=== PATIENT | male | born 1960 | race Caucasian/White ===

== ENCOUNTER 2016-04-10 20:15 | Emergency (ER) | payer BC ==
--- NOTE | 2016-04-10 20:58 | ERNOTE ---
Abdominal HPI - Narrative Date of Service: 04/10/16 - General Chief Complaint: Abdominal Pain Time Seen by Provider: 04/10/16 20:54 - Immun/Allergies/Home Medications Immunizatons: IMMUNIZATION HX Immunizations Up to Date Yes History of Influenza Vaccine No Allergies/Adverse Reactions: Allergies aspirin Adverse Reaction (Verified 04/10/16 20:38) nosebleeds Home Medications: HOME MEDICATIONS Otc Supplements 04/09/14 [Last Taken Unknown] - History of Present Illness Narrative: PT HAS A LONG HISTORY OF CARCINOID SYNDROME FOLLOWED AT [facility] BY DR CHILDRESS. HE HAS NOT LOCAL DR. HE WAS LAST SEEN THEIR IN [address] OF CHEST AND ABDOMEN A ROUTINE SCREENING PROCESS SHOWING "MORE CONSPICUOUS AND NUMEROUS SMALL HYPER ENHANCING LESIONS IN LIVER . CONSISTENT WITH PROGRESSION OF METASTATIC DISEASE IN THE LIVER". HE ALSO HAD FINDINGS OF "STABLE METASTATIC DISEASE " IN THE "PERITONEUM AND OMENTUM". HE PRES[facility] WITH C/O GENERALIZED ABDOMINAL PAINS EVER SINCE LAST THURSDAY WHEN HE WAS OUT PICKING UP BRUSH AND HE WONDERS IF HE STRAIN SOME ABDOMINAL MUSCLES. HE RELATES THAT THE DISCOMFORT IS BECOMING MORE CONSISTENT AND WORSE WITH MOVEMENT AND DEEP BREATHING BUT HE HAS INITIATED NO TREATMENT FOR THIS. HE DENIES WEIGHT GAIN OR LOSS. NO CHANGE IN HIS APPETITE OR BOWEL HABITS. HE HAS FAIRLY REGULAR [facility] HE SAYS THAT THESE STOOLS DO SMELL BAD. HE LAST ATE ABOUT 1630. HE HAS HAD NO FEVERS OR VOMITING OR DIARRHEA. HE DENIES UTI SX. WHEN LAST SEEN IN [place] HE HAD BEEN STARED ON OCTREOTIDE, S.Q. TID, WHICH HE READ COULD CAUSE ABDOMINAL PAINS SO HE QUIT TAKING IT TWO DAYS AGO BUT NOTICED NO IMPROVEMENT. HE HAS NOT CONTACTED HIS PHYSICIAN IN [place]. HE WAS LAST SEEN HERE BY DR VALLADARES IN 2010 WHEN HE HAD A SMALL BOWEL RESECTION THAT LED TO THE DIAGNOSIS OF HIS CARCINOID SYNDROME. Timing: getting worse Quality: moderate, cramping Activities at Onset: activity Modifying Factors - (Worsens): Present: breathing, movement Review of Systems - Narrative Narrative: Pt with history of intermittent abdominal pains for the past week. He has not been seen by his PCP or oncologist for this. - Review of Systems Constitutional: Present: See HPI Respiratory: Present: no symptoms reported Cardiology: Present: no symptoms reported Gastrointestinal/Abdominal: Present: See HPI. Absent: nausea, vomiting, diarrhea, constipation, eating less, drinking less Genitourinary: Present: no symptoms reported Musculoskeletal: Present: See HPI Neurological: Present: no symptoms reported Endocrine: Present: no symptoms reported Psych: Present: no symptoms reported All Other Systems: All systems neg except as marked - Patient's Past Medical History Patient History - Medical: Other - HISTORY OF [place] 1982, HX OF CARCINOID SYN . SINCE 2010. HE STATES MILD HYPOTHYROIDISM FOR WHICH HE TAKES NO MEDS. Patient History - Cardiac/Respiratory: No pertinent hx Patient History - Cancer: Other Patient History - Surgical Procedures: Colon Resection, T & A, Other - CERVICAL NODE BX. 1982 , "CYSTS" TO BACK OF NECK 2002, Orthopedic - Social History Living Situations: home Psych History: No pertinent hx Smoking Status: Never smoker Alcohol Use: none Drug Use: none - Immunizations Immunizations Up to Date: Yes History of Influenza Vaccine: No Physical Exam - Physical Exam General Appearance: Present: wd/wn, no apparent distress Respiratory: Present: no respiratory distress, normal breath sounds, no accessory muscle use, chest nontender, lungs clear Cardiovascular/Chest: Present: regular rate, rhythm, no murmur, normal peripheral pulses Gastrointestinal/Abdominal: Present: normal bowel sounds, soft, no organomegaly , tenderness - GENERALIZED TENDERNESS ALL ACROSS UPPER ABDOMEN WITH MINMAL GUARDING AND NO REBOUND. NO MASSES OR ORGANOMEGALY. HE HAS SLIGHTLY PROTUBERANT ABDOMEN WHICH SAYS IS NOT CHANGE FORM HIS NORMAL. THERE IS NO SIGN OF ANY HERNIA. HE HAS OLD MIDLINE SUB- UMBILICAL SURGICAL SCAR. . Absent: rebound, McBurney sign, Page sign, mass, hernia, hepatomegaly Back Exam: Present: normal inspection, normal range of motion, no CVA tenderness , no vertebral tenderness Neurological Exam: Present: alert, oriented, normal mood/affect, no motor/ sensory deficits Skin Exam: Present: normal color, warm/dry Lymphatic Exam: Present: no adenopathy ED Progress - Date and Time Seen: Date and Time: 04/10/16 22:35AT [address] CARNEY, THE PT'S IN [place], EXPLAINING THE SIGNS ANS SYMPTOMS ANS LAB AND XRAY RESULTS. HE DID NOT THINK A REPEAT CT EXAM WAS NECESSARY RIGHT NOW BUT SUGGESTED THAT PT. GET ON ROUTINE USE OF PRE- MEAL PAPAYA EXTRACT. HE SHOULD CALL THEM TO ARRANGE FOLLOW UP AT THEIR CLINIC AND HOLD THE OCTREOTIDE INJECTIONS FOR NOW. - Results and Orders Patient's Lab Results:: I have reviewed the patient's lab results. - Vital Signs Vital Signs: Vital Signs 04/10/16 20:33 Temperature 36.7 C Pulse Rate 67 Respiratory 20 Rate Blood Pressure 142/74 O2 Sat by Pulse 97 Oximetry - X-Ray X-Ray #1 X-Ray: abdomen Interpretation: Interp. by me X-ray Comments: NO ACUTE ABNORMALITY NOTED. - Progress/Reassessment Chief Complaint: Abdominal Pain Plan - Plan Plan: AFTER TALKING WITH DR CARNEY , A TALKED WITH PT AND HIS TO EXPLAIN HIS DOCTORS SUGGESTIONS. Departure - Departure Clinical Impression: Abdominal pain in male Disposition: Home self-care Condition: Good Instructions: Abdominal Pain, Adult, [id number] Additional Instructions: Your blood work and urine and abdominal xrays are normal. I talked with Dr. Boo Peacock and he suggests holding the octeotride for now but be sure to use the papaya chewables, 4 tablets 30 mins. before each meal. Call Dr. Carney to arrange follow up , sooner if you are worse. Return to the ER if further problems.
--- OUTSIDE RECORDS SUMMARY | 2016-04-10 21:10 | XMS REPORT | Continuity of Care Document ---
:1960 Author Organization [facility] ([facility]) Address [address] [place] [address] Phone [phone] Care Team Providers Name Role Phone Carli Stubbs-Physicians & Primary Care Provider [phone] Source Comments This disclosure is being made pursuant to the Care Everywhere program, applicable federal and state laws, and may not contain all informaitonavailable regarding this patient.[facility] ([facility]) Active Allergies and Adverse Reactions Allergen Noted Date Severity Reactions Comments Aspirin OTHER Causes Nose bleeds Current Medications Prescription Sig. Disp. Refills Start End Date Status Date MULTIVITS take 1 Tab by mouth Active W-FE,OTHER MIN 2 times daily. (MULTIVITAMIN AND MINERALS PO) ZINC ACETATE, Active BULK, garlic tablet Take 1 tablet by Active mouth daily. OTHER Vitamin B 17 Active OTHER Wobenzyme Active octreotide 1000 Inject 0.1 mL (100 10 mL Active mcg/mL injection mcg total) 7 subcutaneously 3 times daily. SUPPLY BD UF 3 times daily. 100 Syringe Active short insulin 7 syringe w/ half unit markings 0.3 mL 31 g x 16" octreotide 1000 Inject 0.1 mL (100 10 mL Active mcg/mL injection mcg total) 7 subcutaneously 3 times daily. SUPPLY BD UF Inject 100 Syringe Active short insulin subcutaneously 7 syringe w/ half three times daily. unit markings 0.3 mL 31 g x 5/16" SUPPLY insulin Inject 100 Syringe 03/13/19 Discontinued syringe w/ needle subcutaneously 3 7 17 U-100 0.5 mL 29 x times daily. 1/2" SUPPLY BD UF Use 3 times daily 100 Syringe 11 03/13/19 Discontinued short insulin to inject 7 17 syringe w/ half octreotide. unit markings 0.3 mL 31 g x 5/16" octreotide 1000 Inject 0.1ml 10 mL 11 03/13/19 Discontinued mcg/mL injection (100mcg) 7 17 subcutaneously three times daily. 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 Partial small bowel obstruction 04/05/2010 Anemia 09/19/2008 Hypothyroid 09/19/2008 Hodgkin's disease 09/19/2008 TBI (traumatic brain injury) 09/19/2008 Other malaise and fatigue 03/15/2008 Most Recent Encounters Date Type Specialty Providers Description 03/13/2016 Pharmacy Visit 03/13/2016 Refill Reinaldo Grant Dx: Neuroendocrine S cancer (Primary Dx) 03/12/2016 Pharmacy Visit 03/12/2016 Refill [facility] Rafaela Jon Chief Comp: Medication Problem 03/11/2016 Pharmacy Visit 03/11/2016 Orders/Notes Med Endocrinology Ke[place], Dx: Carcinoid tumor MD Russ of ileum (Primary Dx) 03/11/2016 Telephone Cancer Center Keshav Syed Chief Comp: J, or director Question 03/10/2016 Telephone Med Hematology and Lita Sifuentes Chief Comp: 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 03/07/2016 Office Visit Med Hematology and [place], Dx: Carcinoid tumor Oncology MD Russ of ileum 03/07/2016 Telephone Hematology and [facility] Amna Moody 03/06/2016 Telephone Cancer Center Jeffrey Antoine 02/29/2016 Telephone Hematology and Taniya Mederos Oncology 02/22/2016 Office Visit Med Hematology and [place], Dx: Carcinoid tumor Oncology MD Russ of ileum (Primary Dx) 02/22/2016 Hospital Radiology Chente Basilio, Dx: Neuroendocrine Encounter malignancy 02/22/2016 Pharmacy Visit 01/31/2016 Office Visit Med Hematology and [place], Dx: Neuroendocrine Oncology MD Russ malignancy Social History Tobacco Use Types Packs/Day Years Used Date Never Smoker Smokeless Tobacco: Never Used Last Filed Vital Signs Vital Sign Reading Time Taken Blood Pressure 152/76 02/22/2016 2:39 PM [facility] Pulse 77 02/22/2016 2:39 PM [facility] Temperature 35.8 C (96.4 F) 02/22/2016 2:39 PM [facility] Respiratory Rate 16 10/11/2015 3:55 PM CDT Height 1.845 m (6' 0.64") 02/22/2016 2:39 PM [facility] Weight 98 kg (216 lb 0.8 oz) 02/22/2016 2:36 PM [facility] Body Mass Index 28.79 02/22/2016 2:36 PM [facility] Oxygen Saturation 97% 02/22/2016 2:39 PM CHECK [facility]MAN Plan of Care Date Type Specialty Providers Description 08/27/2016 Appointment Radiology Subj: Appointment Scheduled 08/27/2016 Appointment Med Hematology and Russ Pugh, Subj: Appointment Oncology MD Scheduled [address] [place] [address] [phone] (Fax) Health Maintenance Due Date Last Done Comments HCV Screening 1960 Hepatitis B Vaccine (1 of 3 - Primary Series) 1960 Tdap Vaccine 1969 Lipid Disorder Screening 1976 MMR Vaccine 1976 Td Vaccine 1976 Pneumococcal Vaccine (1 of 3 - PCV13) 1977 Colonoscopy 12/30/2008 Prostate Cancer Screening 2008 Influenza Vaccine: Seasonal (#1) 09/10/2015 Results from Last 3 Months DIFFERENTIAL (03/07/2016 4:11 PM)Only the most recent of2 resultswithin the time period is included. Component Value Range % Neutrophils-Auto Diff 59.3 % Neutrophils-Auto Diff 4750 3822-4555 /MM3 % Lymphocytes-Auto Diff 25.4 % Lymphocytes-Auto Diff 2040 875-3300 /MM3 % Monocytes-Auto Diff 9.1 % Monocytes-Auto Diff 730 130-860 /MM3 % Eosinophils-Auto Diff 4.2 % Eosinophils-Auto Diff 340 40-390 /MM3 % Basophils 1.1 % Basophils-Auto Diff 90 10-136 /MM3 % Immature Granulocytes-Auto Diff 0.9 % Immature Granulocytes-Auto Diff 70 /MM3 Specimen Whole Blood CBC (COMPLETE BLOOD COUNT) (03/07/2016 4:11 PM)Only the most recent of2 resultswithin the time period is included. Component Value Range WBC Count 8.0 3.7-10.5 K/MM3 RBC Count 5.04 4.50-6.20 M/MM3 Hemoglobin 14.5 13.2-17.7 g/dL Hematocrit 42 40-52 % MCV (Mean Corpuscular Volume) 84 82-99 FL MCH (Mean Corpuscular Hemoglobin) 29 25-35 PG MCHC (Mean Corpuscular Hemoglobin Concentration) 34 32-36 % Platelet Count 186 150-400 K/MM3 MPV (Mean Platelet Volume) 9.4 9.4-12.3 FL RBC Dist Width-STD 39.5 35.1-43.9 FL RBC Distrib Width 13.0 9.0-14.5 % Nucleated RBC 0 /100 WBC Specimen Whole Blood SUBSTANCE P (03/07/2016 4:11 PM)Only the most recent of2 resultswithin the time period is included. Component Value Range Substance P 86Comment: 40-270 pg/mL This test was developed and its performance characteristics determined by [facility]. It has not been cleared or approved by the US Food and Drug Administration. The FDA has determined that such clearance or approval is not necessary. Specimen Blood PANCREASTATIN (03/07/2016 4:11 PM)Only the most recent of2 resultswithin the time period is included. Component Value Range Pancreastatin 485(H)Comment: 10-135 pg/mL This test was developed and its performance characteristics determined by [facility]. It has not been cleared or approved by the US Food and Drug Administration. The FDA has determined that such clearance or approval is not necessary. Specimen Blood SEROTONIN, BLOOD (03/07/2016 4:11 PM)Only the most recent of2 resultswithin the time period is included. Component Value Range Serotonin, Blood 969(H)Comment: 50-200 ng/mL TEST INFORMATION:Serotonin Whole Blood Test developed and characteristics determined by [facility]. See Compliance Statement B: [facility] Performed by [facility], [address] [place] [id number] [email or web address], Herb Pearl MD, Lab. Director Specimen Blood Narrative Source: BLOOD Client Accession number: [id number] NEUROKININ A (SUBSTANCE K) (03/07/2016 4:11 PM)Only the most recent of2 resultswithin the time period is included. Component Value Range Neurokinin A (Substance K) 40Comment: <=40 pg/mL This test was developed and its performance characteristics determined by [facility]. It has not been cleared or approved by the US Food and Drug Administration. The FDA has determined that such clearance or approval is not necessary. Specimen Blood CHROMOGRANIN A (03/07/2016 4:11 PM)Only the most recent of2 resultswithin the time period is included. Component Value Range Chromogranin A 381(H)Comment: 0-95 ng/mL INTERPRETIVE INFORMATION:Chromogranin A This test is performed using the theRightAPI [id number] kit. Results obtained with different methods or kits cannot be used interchangeably. See Compliance Statement D: [facility] Performed by [facility], [address] [facility],[place] [id number] [email or web address], Herb Pearl MD, Lab. Director Specimen Blood Narrative Source: BLOOD Client Accession number: [id number] GASTRIN, SERUM (03/07/2016 4:11 PM)Only the most recent of2 resultswithin the time period is included. Component Value Range Gastrin, Serum 14Comment: 0-100 pg/mL Performed by [facility], [address] [employer] [employer] [facility] [place] [address] www.[email or web address], Herb Pearl MD, Lab. Director Specimen Blood Narrative Source: BLOOD Client Accession number: [id number] HEMOGLOBIN A1C (03/07/2016 4:11 PM)Only the most recent of2 resultswithin the time period is included. Component Value Range Hemoglobin A1c 5.2Comment: 4.8-6.0 % Glycemic Control Guidelines: Non-diabetic <6% Goal <7% Therapeutic Action >8% Estimated Average Glucose 103Comment: mg/dL The estimated average glucose (eAG) calculated from the HbA1c changed on 28/09.See Laboratory Bulletins in the Department of Pathology Laboratory Services Handbook for a full discussion.Not e that the new calculated glucose will now be lower.The A1c result is unchanged. Specimen Whole Blood TRIIODOTHYRONINE - FREE (03/07/2016 4:11 PM)Only the most recent of2 resultswithin the time period is included. Component Value Range T3, Free 2.69 2.57-4.43 pg/mL Specimen Blood THYROXINE - FREE (03/07/2016 4:11 PM)Only the most recent of2 resultswithin the time period is included. Component Value Range Free T4 (Thyroxine) 0.73(L) 0.80-1.80 ng/dL Specimen Blood THYROID STIMULATING HORMONE (03/07/2016 4:11 PM)Only the most recent of2 resultswithin the time period is included. Component Value Range TSH 9.42(H) 0.27-4.20 IU/mL Specimen Blood CBC WITH DIFFERENTIAL (03/07/2016 4:11 PM)Only the most recent of2 resultswithin the time period is included. Specimen Whole Blood Narrative The following orders were created for panel order CBC WITH DIFFERENTIAL. Procedure Abnormality Status --------- ------ CBC (COMPLETE BLOOD COUNT)[[id number]] Final result DIFFERENTIAL[[id number]] Final result Please view results for these tests on the individual orders. COMPREHENSIVE METABOLIC PANEL (CMP) (03/07/2016 4:11 PM)Only the most recent of2 resultswithin the time period is included. Component Value Range Sodium 139 135-145 mEq/L Potassium 4.2 3.5-5.0 mEq/L Chloride 99 95-107 mEq/L CO2 28 22-29 mEq/L Anion Gap 12 8-18 mEq/L BUN 14 10-20 mg/dL Creatinine 1.0Comment: 0.6-1.2 mg/dL Creatinine switched to enzymatic method on 06/18/2010.GFR equation switched to IDMS-traceable MDRD equation on 06/18/2010. Calculated GFR values are not valid in clinical settings where serum creatinine is changing. Glucose 88Comment: 65-99 mg/dL The Expert Committee on the Diagnosis and Classification of Diabetes has defined impaired fasting glucose as greater than or equal to 100 mg/dL but less than 126 mg/dL.(Diabetes Care 28 (Suppl 1)S41,2005) Calcium 9.0 8.5-10.5 mg/dL Total Protein 7.2 6.0-8.0 g/dL Albumin 4.7 3.4-4.8 g/dL AST 26Comment: 0-40 U/L Adult reference ranges updated on 01/04/13 at 830am ALP 73 40-129 U/L Bilirubin Total 0.4 <=1.2 mg/dL ALT 31Comment: 0-41 U/L The upper limit of normal for alanine aminotransferase (ALT) reference ranges for adults is controversial with some authorities recommending limit as low as 30 U/L for males and 19 U/L for females. Th ere is increased incidence of subclinical liver disease (e.g., early steatohepatitis) in patients with ALT values in the range of 31-41 U/L for males and 20-33 U/L for females. ALT values should alway s be interpreted in conjunction with clinical history, physical examination findings, and, if applicable, data from other diagnostic tests. Calculated GFR 77 >60 mL/min/1.[address] CHEST ABDOMEN PELVIS W CONTRAST ([id number], [id number]) (02/22/2016 12:32 PM) Impressions Impression: 1. More conspicuous and numerous small hyper enhancing lesions in liver, consistent with progression of metastatic disease in the liver. 2. Moderate loculated but unchanged intraperitoneal fluid in the pelvis and studding and nodularity of the peritoneum and omentum, findings typical for stable metastatic disease. 3. Old compression fracture of T12. Narrative Procedure: CT CHEST ABDOMEN PELVIS W CONTRAST ([id number], [id number]) Clinical Indication: ] Neuroendocrine tumor restaging Technique: CT exam of the chest, abdomen, and pelvis is performed following the uneventful administration of 150 cc Isovue-370 IV contrast. Comparison: 10/11/2015 Findings: Neck base and axilla: No lymphadenopathy Mediastinum and devi: No lymphadenopathy. Heart and thoracic aorta: Normal. Airway: Patent. Lungs and pleura: Normal Esophagus: Normal. Chest wall soft tissues: Normal Liver: There are multiple hyper-enhancing small lesions throughout the liver, best seen on arterial exam more conspicuous than last examination, worrisome for progressive metastatic disease. Largest of these measures approximately anterior to the main portal vein, series 2, image 33, 1.8 cm. Small cystic lesion in right lobe of liver, 8 mm, stable. Bile ducts: Not dilated. Gallbladder: Present but somewhat contracted Pancreas: Normal Spleen: Normal Adrenal glands: Normal Kidneys: Tiny hypodensity left kidney unchanged, consistent with small simple cyst Ureters: Normal Bladder: Normal Aorta: Normal Retroperitoneum: No lymphadenopathy. Peritoneum: The peritoneal surfaces are somewhat hazy and nodular appearing, but there is been no significant interval change. Small nodules are dispersed throughout the mesentery and omentum. Mesentery: Multiple small, nodular and hazy opacities, stable Stomach: Not distended. Small bowel: Not distended. Colon: Not distended. Appendix: No pathology identified Extraperitoneal pelvis: Loculated, moderatepelvic fluid identified, unchanged in amount or position Prostate: Normal Abdominal wall: Normal Bones: Old, mild compression deformity of T12. Otherwise, no lytic lesions or compression fractures. Procedure Note Elijah, Incoming Imaging Results - ThuFeb 22, 2016 4:33 PM CHECK [facility] Procedure: CT CHEST ABDOMEN PELVIS W CONTRAST ([id number], [id number]) Clinical Indication: ] Neuroendocrine tumor restaging Technique: CT exam of the chest, abdomen, and pelvis is performed following the uneventful administration of 150 cc Isovue-370 IV contrast. Comparison: 10/11/2015 Findings: Neck base and axilla: No lymphadenopathy Mediastinum and devi: No lymphadenopathy. Heart and thoracic aorta: Normal. Airway: Patent. Lungs and pleura: Normal Esophagus: Normal. Chest wall soft tissues: Normal Liver: There are multiple hyper-enhancing small lesions throughout the liver, best seen on arterial exam more conspicuous than last examination, worrisome for progressive metastatic disease. Largest of these measures approximately anterior to the main portal vein, series 2, image 33, 1.8 cm. Small cystic lesion in right lobe of liver, 8 mm, stable. Bile ducts: Not dilated. Gallbladder: Present but somewhat contracted Pancreas: Normal Spleen: Normal Adrenal glands: Normal Kidneys: Tiny hypodensity left kidney unchanged, consistent with small simple cyst Ureters: Normal Bladder: Normal Aorta: Normal Retroperitoneum: No lymphadenopathy. Peritoneum: The peritoneal surfaces are somewhat hazy and nodular appearing, but there is been no significant interval change. Small nodules are dispersed throughout the mesentery and omentum. Mesentery: Multiple small, nodular and hazy opacities, stable Stomach: Not distended. Small bowel: Not distended. Colon: Not distended. Appendix: No pathology identified Extraperitoneal pelvis: Loculated, moderate pelvic fluid identified, unchanged in amount or position Prostate: Normal Abdominal wall: Normal Bones: Old, mild compression deformity of T12. Otherwise, no lytic lesions or compression fractures. IMPRESSION Impression: 1. More conspicuous and numerous small hyper enhancing lesions in liver, consistent with progression of metastatic disease in the liver. 2. Moderate loculated but unchanged intraperitoneal fluid in the pelvis and studding and nodularity of the peritoneum and omentum, findings typical for stable metastatic disease. 3. Old compression fracture of T12.
[2016-04-10 21:12] VITALS: BP 138/72
[2016-04-10 21:46] LABS: Urine Bilirubin Negative (NEGATIVE); Urine Blood Negative /ul (NEGATIVE); Urine Ketone Negative (NEGATIVE); Urine Nitrite Negative (NEGATIVE); Urine Protein Negative (NEGATIVE); Urine Urobilinogen Normal (NORMAL)
[2016-04-10 21:47] LABS: Albumin * 3.7 gm/dl (3.4-5.0); Anion Gap 11.7 mmol/L (6.8-13.8); BUN/Creatinine Ratio 10.1 (9.0-21.6); Bilirubin, Total 0.3 mg/dL (0.0-1.1); Ca. Corrected For Albumin 8.5 mg/dL (8.4-10.2); Calcium * 8.6 mg/dL (7.9-10.9); Carbon Dioxide 28.8 mmol/L (24-32.6); Hematocrit 42.7 % (42.0-52.0); Hemoglobin 14.3 gm/dL (13.5-18.0); Mean Cell Volume 84.4 fl (78-100); Mean Corpuscular Hemoglobin 28.3 pg (27-31); Mean Corpuscular Hgb Conc 33.5 g/dl (32-36); Mean Platelet Volume 9.6 fl (6.0-9.5); Neutrophil % 59.5 % (42-75.0); Platelet Count 234 K/mm3 (150-450); Potassium 4.5 mmol/L (3.4-4.6); Red Blood Count 5.06 M/mm3 (4.7-6.0); Red Cell Distribution Width 12.8 % (11.5-14.0); Total Protein 7.2 gm/dL (6.2-8.2); White Blood Count 8.4 K/mm3 (4.0-10.5)
[2016-04-10 22:00] LABS: Urine Appearance Clear; Urine Bacteria None Seen; Urine Color Yellow; Urine Mucus Few - 1+; Urine RBC None Seen /hpf (0-5); Urine WBC None Seen /hpf (0-5)
== END 2016-04-10 22:45 | disposition home or self-care (01) ==
LOC: ER 20:15
DX: R10.9 Unspecified abdominal pain (principal); Z85.71 Personal history of Hodgkin lymphoma